=== PATIENT | male | born 2000 | race African-American/Black ===

== ENCOUNTER 2022-04-13 14:57 | Emergency (ER) | payer SELFPAY ==
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
[2022-04-13 15:14] VITALS: BP 154/100; PULSE 58; RESP 16; TEMP 36.2; O2SAT 99
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
== END 2022-04-13 16:20 | disposition home or self-care (01) ==
PROVIDERS: Emergency Provider Nurse Practitioner Family
DX: S39.012A Strain of muscle, fascia and tendon of lower back, initial encounter (principal); V43.62XA Car passenger injured in collision with other type car in traffic accident, initial encounter; I10 Essential (primary) hypertension; F90.9 Attention-deficit hyperactivity disorder, unspecified type
CPT/HCPCS: 72100; 99213; G0463

== ENCOUNTER 2022-06-23 13:56 | Outpatient (CLI) | payer SELFPAY ==
--- NOTE | ~2022-06-23 | XR_ITS ---
EXAMINATION:XR cervical spine 4-5V DATE: 06/23/2022 14:25 INDICATION: Neck pain TECHNIQUE: AP, lateral in neutral, flexion, extension, and odontoid views of the cervical spine are p rovided. COMPARISON: None FINDINGS: There is straightening of the cervical spine which can be positional or due to muscular spa sm. Alignment is normal. There is no laxity with flexion or extension. The odontoid is intact. No fra cture is identified. Vertebral body heights and disk spaces are normal. Prevertebral soft tissues are normal. IMPRESSION: 1. Unremarkable cervical spine radiographs. Reviewed, dictated and finalized at location A.
== END 2022-06-23 13:57 | disposition home or self-care (01) ==
LOC: ANHIMG 14:01
PROVIDERS: PCP Family Medicine; Visit Provider Chiropractor
DX: M54.2 Cervicalgia (principal)
CPT/HCPCS: 72050

== ENCOUNTER 2022-08-07 06:56 | Outpatient (RCR) | payer SELFPAY | END 2022-10-21 10:35 | disposition home or self-care (01) | LOC: ANHPT 06:56 | PROVIDERS: PCP Family Medicine; Visit Provider Family Medicine | DX: M54.50 Low back pain, unspecified (principal); M79.10 Myalgia, unspecified site | CPT/HCPCS: 99199 ==

== ENCOUNTER 2024-02-09 13:39 | Outpatient (CLI) | payer OTHER, SELFPAY ==
[2024-02-09 14:34] LABS: Basophils Percent Auto 0.5 % (0.2-1.2); Eosinophils Percent Auto 0.6 % (0-4.4); Hematocrit 45.3 % (42.0-52.0); Hemoglobin 15.4 g/dL (14.0-18.0); Immature Granulocyte Absolute 0.02 K/mm3 (0.00-0.031); Immature Granulocyte Percent A 0.3 % (0-0.5); Lymphocytes Absolute Auto 2.41 K/mm3 (0.9-3.2); Lymphocytes Percent Auto 36.5 % (18.3-44.2); Mean Corpuscular Volume 82.4 fl (80-100); Mean Platelet Volume 10.7 fl (7.4-10.4); Monocytes Absolute Auto 0.5 K/mm3 (0.1-0.6); Monocytes Percent Auto 7.4 % (2.6-8.5); Neutrophils Absolute Auto 3.6 K/mm3 (1.3-6.7); Neutrophils Percent Auto 54.7 % (45.5-73.1); Platelet Count Result 240 k/mm3 (150-375); Red Cell Distribution Width 12.2 % (11.5-14.5); White Blood Count 6.6 K/mm3 (4.5-10.0)
[2024-02-09 14:49] LABS: Alanine Aminotransferase 74 U/L (6-50); Albumin Level 4.4 g/dL (3.5-5.1); Alkaline Phosphatase 59 U/L (38-126); Anion Gap 5 mmol/L (4-12); Aspartate Amino Transferase 54 U/L (17-59); Bilirubin,Total 0.6 mg/dL (0.2-1.3); Blood Urea Nitrogen 13 mg/dL (9-20); Calcium 9.4 mg/dL (8.4-10.2); Carbon Dioxide 31 mmol/L (22-30); Chloride 102 mmol/L (98-107); Cholesterol 172 mg/dL (0-200); Estimated Glomerular Filt Rate > 60; Glucose 115 mg/dL (65-110); HDL Direct 31 mg/dL; Sodium 138 mmol/L (137-145); Triglycerides 158 mg/dL (<150)
[2024-02-09 15:02] LABS: LDL Cholesterol Direct 114 mg/dL
[2024-02-09 15:26] LABS: Total Triiodothyronine (T3) 1.07 NG/ML (0.97-1.69)
[2024-02-09 15:30] LABS: Free T4 Free Thyroxine 1.08 ng/mL (0.78-2.19)
== END 2024-02-09 13:40 | disposition home or self-care (01) ==
LOC: ANHLAB 13:42
PROVIDERS: PCP Family Medicine; Visit Provider Registered Nurse
DX: E78.5 Hyperlipidemia, unspecified (principal); R53.83 Other fatigue
CPT/HCPCS: 36415; 80053; 80061; 84439; 84443; 84480; 85025